=== PATIENT | male | born 1990 | race Caucasian/White ===

== ENCOUNTER 2021-09-06 10:15 | Emergency (ER) | payer BC ==
[2021-09-06] MEDS ORDERED: FLONASE 0.05% N16 GM (12:29)
[2021-09-06] MEDS ORDERED: PSEUDOEPHEDRINE60 MG PO (12:29)
[2021-09-06] MEDS ORDERED: DELSYM30 MG/5 ML PO (12:29)
[2021-09-06] MEDS ORDERED: MEDROL DOSEPAK 24 MG PO (12:29)
== END 2021-09-06 12:51 | disposition home or self-care (01) ==
LOC: ER1 10:15
DX: J06.9 Acute upper respiratory infection, unspecified (principal); Z20.822 Contact with and (suspected) exposure to COVID-19
CPT/HCPCS: 71046; 99283; U0002